=== PATIENT | male | born 1945 | race Two or more races ===

== ENCOUNTER 2018-10-09 06:57 | Outpatient (CLI) | payer OTHER | END 2018-10-09 07:01 | disposition home or self-care (01) | LOC: LAB 06:57 | DX: D69.8 Other specified hemorrhagic conditions (principal) ==

== ENCOUNTER → 2019-03-30 10:23 | Outpatient (CLI) | payer OTHER | END | disposition home or self-care (01) | LOC: LAB 10:23 | DX: D69.59 Other secondary thrombocytopenia (principal) ==

== ENCOUNTER 2019-12-09 06:23 | Outpatient (CLI) | payer OTHER | END 2019-12-09 13:00 | disposition home or self-care (01) | LOC: LAB 06:23 | DX: I11.9 Hypertensive heart disease without heart failure (principal) ==